=== PATIENT | female | born 1975 | race Caucasian/White ===

== ENCOUNTER → 2018-11-26 14:30 | Outpatient (POV) | payer BC, SELFPAY | PROVIDERS: Visit Provider Dermatology | DX: Z00.00 Encounter for general adult medical examination without abnormal findings (principal) ==

== ENCOUNTER → 2019-01-28 08:07 | Outpatient (POV) | payer BC, SELFPAY | PROVIDERS: Visit Provider Dermatology | DX: Z00.00 Encounter for general adult medical examination without abnormal findings (principal) ==

== ENCOUNTER → 2019-11-11 10:00 | Outpatient (POV) | payer BC, SELFPAY | PROVIDERS: Visit Provider Dermatology | DX: Z00.00 Encounter for general adult medical examination without abnormal findings (principal) ==

== ENCOUNTER → 2021-01-04 11:00 | Outpatient (POV) | payer BC, SELFPAY | PROVIDERS: Visit Provider Dermatology | DX: Z00.00 Encounter for general adult medical examination without abnormal findings (principal) ==

== ENCOUNTER → 2021-05-24 14:40 | Outpatient (POV) | payer BC, SELFPAY | PROVIDERS: Visit Provider Dermatology | DX: Z00.00 Encounter for general adult medical examination without abnormal findings (principal) ==

== ENCOUNTER → 2021-10-25 09:25 | Outpatient (POV) | payer BC, SELFPAY ==
[2021-10-25 10:30] LABS: Basophils # 0.1 K/mm3 (0-0.2); Basophils % 0.6 % (0.1-2.0); Eosinophils # 0.2 K/mm3 (0.0-0.4); Eosinophils % 1.5 % (0.1-12.0); Hematocrit 42.5 % (37.0-47.0); Hemoglobin 14.3 g/dL (12.2-16.2); Lymphocytes % 19.3 % (10-50); Mean Corpuscular HGB Conc 33.6 g/dL (31.8-35.4); Mean Corpuscular Hemoglobin 31.4 pg (27.0-31.2); Mean Corpuscular Volume 93.5 fl (81-99); Mean Platelet Volume 7.7 fl (7.4-10.4); Monocytes # 0.3 K/mm3 (0.1-1.0); Monocytes % 3.3 % (1.7-9.3); Neutrophils # 7.7 K/mm3 (1.8-7.8); Neutrophils % 75.3 % (37.0-80.0); Platelet Count 346 K/mm3 (142-424); Red Blood Count 4.54 M/mm3 (4.20-5.40); Red Cell Distribution Width 12.2 % (11.5-17.5); White Blood Count 10.3 K/mm3 (4.8-10.8)
[2021-10-25 11:03] LABS: Chloride 105 mmol/L (98-107); Potassium 4.6 mmoL/L (3.5-5.1); Sodium 141 mmol/L (136-145)
[2021-10-25 11:06] LABS: Alanine Aminotransferase 18 U/L (12-78); Albumin Level 4.5 g/dl (3.5-5.0); Albumin/Globulin Ratio 1.6 (1.1-1.8); Alkaline Phosphatase 63 U/L (38-126); Anion Gap 14.6 mEq/L (5-15); Aspartate Amino Transferase 29 U/L (14-36); Bilirubin,Total 0.7 mg/dl (0.2-1.3); Blood Urea Nitrogen 15 mg/dl (7-17); Calcium 9.3 mg/dl (8.4-10.2); Carbon Dioxide 26 mmol/L (22.0-30.0); Estimated Glomerular Filt Rate 78 ml/min (>60); GFR (African American) 94 ML/MIN (>60); Globulin 2.8 g/dL (1.3-3.2); Glucose 78 mg/dl (74-100); Total Protein,Serum 7.3 g/dl (6.3-8.2)
[2021-10-28 03:36] LABS: QuantiFERON-TB Gold Plus Negative (Negative)
== END ==
PROVIDERS: Visit Provider Dermatology
DX: L40.0 Psoriasis vulgaris (principal); Z79.899 Other long term (current) drug therapy
CPT/HCPCS: 36415; 80053; 85025; 86480

== ENCOUNTER → 2022-01-31 09:08 | Outpatient (POV) | payer BC, SELFPAY | PROVIDERS: Visit Provider Dermatology | DX: Z00.00 Encounter for general adult medical examination without abnormal findings (principal) ==

== ENCOUNTER → 2022-11-07 08:05 | Outpatient (POV) | payer BC, SELFPAY | PROVIDERS: Visit Provider Dermatology | DX: Z00.00 Encounter for general adult medical examination without abnormal findings (principal) ==

== ENCOUNTER → 2022-11-07 08:42 | Outpatient (CLI) | payer BC, SELFPAY ==
[2022-11-07 09:11] LABS: Basophils # 0.1 K/mm3 (0-0.2); Eosinophils # 0.1 K/mm3 (0.0-0.4); Eosinophils % 0.9 % (0.1-12.0); Hematocrit 43.1 % (37.0-47.0); Lymphocytes # 1.6 K/mm3 (0.7-4.5); Lymphocytes % 16.5 % (10-50); Mean Corpuscular HGB Conc 32.5 g/dL (31.8-35.4); Mean Corpuscular Hemoglobin 30.7 pg (27.0-31.2); Mean Corpuscular Volume 94.5 fl (81-99); Mean Platelet Volume 8.2 fl (7.4-10.4); Monocytes # 0.3 K/mm3 (0.1-1.0); Monocytes % 3.6 % (1.7-9.3); Neutrophils # 7.5 K/mm3 (1.8-7.8); Platelet Count 322 K/mm3 (142-424); Red Blood Count 4.56 M/mm3 (4.20-5.40); Red Cell Distribution Width 12.9 % (11.5-17.5); White Blood Count 9.4 K/mm3 (4.8-10.8)
[2022-11-07 09:39] LABS: Chloride 109 mmol/L (98-107)
[2022-11-07 09:40] LABS: Potassium 4.3 mmoL/L (3.5-5.1); Sodium 141 mmol/L (136-145)
[2022-11-07 09:42] LABS: Alanine Aminotransferase 19 U/L (12-78); Alkaline Phosphatase 72 U/L (38-126); Anion Gap 15.3 mEq/L (5-15); Aspartate Amino Transferase 36 U/L (14-36); Bilirubin,Total 0.8 mg/dl (0.2-1.3); Blood Urea Nitrogen 22 mg/dl (7-17); Carbon Dioxide 21 mmol/L (22.0-30.0); Estimated Glomerular Filt Rate 48 ml/min (>60); GFR (African American) 59 ML/MIN (>60)
[2022-11-07 09:43] LABS: Albumin Level 4.6 g/dl (3.5-5.0); Albumin/Globulin Ratio 1.6 (1.1-1.8); Globulin 2.9 g/dL (1.3-3.2); Glucose 93 mg/dl (74-100); Total Protein,Serum 7.5 g/dl (6.3-8.2)
[2022-11-10 14:18] LABS: QuantiFERON-TB Gold Plus Negative (Negative)
[2022-11-15 23:01] LABS: Hep A Ab, IgM NEGATIVE; Hepatitis B Core Antibody IgM NEGATIVE; Hepatitis B Surface Antigen NEGATIVE; Hepatitis C Antibody <0.1
== END ==
PROVIDERS: PCP Family Medicine; Visit Provider Dermatology
DX: L40.8 Other psoriasis (principal)
CPT/HCPCS: 36415; 80053; 80074; 85025; 86480

== ENCOUNTER 2024-09-16 23:31 | Emergency (ER) | payer BC, SELFPAY ==
[2024-09-16 23:32] VITALS: BP 139/90; PULSE 74; RESP 18; TEMP 36.8; O2SAT 98; BMI 24.2
--- NOTE | 2024-09-16 23:44 | ED_ITS ---
Discharge Plan Disposition Patient Disposition: Home, Self-Care Prescriptions Prescriptions: New sulfamethoxazole-trimethoprim 800-160 mg tablet 1 tab PO BID 5 Days Qty: 10 0RF prednisone 50 mg tablet 50 mg PO DAILY 5 Days Qty: 5 0RF No Action omega-3 fatty acids [Fish Oil Concentrate] 1,000 mg capsule 1,000 mg PO ONCE multivitamin with iron tablet 1 tab PO ONCE Saxenda 3 mg/0.5 mL (18 mg/3 mL) pen injector SQ Patient Comments: INJECT 3MG UNDER THE SKIN INTO THE APPROPRIATE AREA DAILY DIRECTED. TITRATE UP DIRECTED STARTING AT 0.6MG DAILY methylprednisolone [Medrol (Josesito)] 4 mg tablets,dose pack 4 mg PO DAILY Qty: 21 0RF azithromycin [Zithromax Z-Josesito] 250 mg tablet See Rx Instructions PO .COMPLEX Qty: 6 0RF Rx Instructions: For 250 mg dose pack: take 500 mg today (day 1), then 250 mg for 4 days (days 2-5) PO fluticasone propionate [Flonase Allergy Relief] 50 mcg/actuation spray,suspension 2 spray NS DAILY Qty: 16 3RF Rx Instructions: administer into each nostril Referrals Follow up/Referrals: Chaya Jarrell MD [Primary Care Provider] - See instructions Activity Restrictions/Add. Instructions Additional Instructions/Restrictions: Recommend taking the Bactrim and discontinuing the Macrobid as this could be a source of reaction. Recommend taking loratadine 10 mg once or twice a day for the next few days. If your rash worsens or persists, recommend starting the prednisone prescription that I also sent in. Please follow-up with your primary care provider. Please return to the emergency department if you develop any new or worsening symptoms or become concerned for your health. Clinical Impressions Clinical Impression: Urticaria Print Language Print Language: Bengali Discharge ED Provider: Rolly Trotter General Adult HPI General Chief complaint: Allergic Reaction Stated complaint: allergic reation, itching, all over body Time Seen by Provider: 09/16/24 23:44 History of Present Illness HPI narrative: 49-year-old female without significant past medical history presents for development of sudden rash. She reports that it was red, blotchy, itchy, started in her groin and was present under her breasts and in her armpits as we ll. She reports it started all of a sudden. She had a episode of diarrhea at the time that started as well. She denies any shortness of breath, swelling of the lips or tongue etc. She reports that she is currently being treated for urinary tract infection and is on Macrobid. She reports that she has been on Macrobid many times before and has never had any issues. She denies any known allergens or recent exposures to new things. She reports that the rash is getting better, did not take anything prior to arrival. Related Data Home Medications ?Medication ?Instructions ?Recorded ?Confirmed multivitamin with iron 1 tab PO ONCE 06/05/18 06/21/22 omega-3 fatty acids 1,000 mg 1,000 mg PO ONCE 06/05/18 06/21/22 capsule (Fish Oil Concentrate) liraglutide (weight loss) 3 mg/0.5 ml SQ 06/21/22 06/21/22 mL (18 mg/3 mL) subcut pen injector (Saxenda) Previous Rx's ?Medication ?Instructions ?Recorded azithromycin 250 mg tablet See Rx Instructions PO .COMPLEX #6 06/21/22 (Zithromax Z-Josesito) tabs fluticasone propionate 50 2 spray intranasal DAILY #16 grams 06/21/22 mcg/actuation nasal spray,suspension (Flonase Allergy Relief) methylprednisolone 4 mg tablets in 4 mg PO DAILY #21 tabs 06/21/22 a dose pack (Medrol (Josesito)) prednisone 50 mg tablet 50 mg PO DAILY 5 days #5 tabs 09/17/24 sulfamethoxazole 800 1 tab PO BID 5 days #10 tabs 09/17/24 mg-trimethoprim 160 mg tablet Allergies Allergy/AdvReac Type Severity Reaction Status Date / Time Penicillins Allergy Verified 06/21/22 12:51 [facility] Disclaimer: The information contained in this section may have been updated after the patient was seen, as this information can be updated by other users. Social History Smoking Status: Current every day smoker alcohol intake: current alcohol intake frequency: holidays/special occasions only current occupational status: employed Travel in the last 8 weeks: None Other Medical History Have you received the Flu Vaccine for this season: No ROS Obtained: Yes All systems reviewed & no additional complaints except as documented Physical Exam General General appearance: alert and in no apparent distress Head Head exam: atraumatic and normocephalic Eye Eye exam: Present normal appearance, PERRL and EOMI ENT ENT exam: Present normal oropharynx and normal external ear exam Neck Neck exam: Present normal inspection and full ROM Chest Chest inspection: Present normal inspection and symmetric chest wall rise; Absent tenderness Respiratory Respiratory exam: Present normal lung sounds bilaterally; Absent respiratory distress Cardiovascular Cardiovascular exam: Present regular rate and normal rhythm Abdominal Exam Abdominal exam: Present soft; Absent distention, tenderness or guarding Extremities Exam Extremities exam: Present normal inspection; Absent edema or joint swelling Back Exam Back exam: Present normal inspection; Absent tenderness Neurological Exam Neurological exam: Present alert and oriented X3; Absent motor sensory deficit Psychiatric Psychiatric exam: Present normal affect and normal mood Skin Skin exam: Present warm, dry, normal color and rash (Urticarial rash in the intertriginous area) Lymphatic Lymphatic Findings: no adenopathy Medical Decision Making Medical Records Medical records reviewed: Yes I reviewed the patient's medical records. Screening: Per USPSTF and CDC recommendations, given the prevalence of disease in our region, it is our hospital?s policy to screen for HIV and viral Hepatitis for all patients aged 18 and over and those with ongoing risk factors. Dhiraj Inquiry Pt receiving controlled substance: No Dhiraj was queried for this patient: No Vital Signs: 09/16/24 23:32 09/17/24 00:00 09/17/24 00:30 Temperature 98.2 F Temperature Source Oral Pulse Rate 70 71 Pulse Rate [Right] 74 Respiratory Rate 18 Blood Pressure 139/90 131/86 Blood Pressure [Right Arm] 139/90 Blood Pressure Mean [Right Arm] 106 Blood Pressure Source [Right Arm] Automatic Cuff 02 Sat by Pulse Oximetry 98 98 98 Oxygen Delivery Method Room Air 09/17/24 00:57 Temperature 97.8 F Temperature Source Pulse Rate 73 Pulse Rate [Right] Respiratory Rate 20 Blood Pressure 131/86 Blood Pressure [Right Arm] Blood Pressure Mean [Right Arm] Blood Pressure Source [Right Arm] 02 Sat by Pulse Oximetry Oxygen Delivery Method Room Air Lab Data Lab results reviewed: Yes I reviewed the patient's lab results. Orders (Tests/Meds): ED MEDICATIONS Discontinued Medications Generic Name Dose Route Start Last Admin Trade Name Freq PRN Reason Stop Dose Admin Dexamethasone 10 mg 09/16/24 23:53 09/17/24 00:21 Dexamethasone 4mg Tablet PO 09/16/24 23:54 10 mg ONCE ONE Administration Loratadine 10 mg 09/16/24 23:54 09/17/24 00:27 Loratadine 10mg Tablet PO 09/16/24 23:55 10 mg ONCE ONE Administration Medical Decision Narrative: 49-year-old female, currently being treated with Macrobid for urinary tract infection presents with sudden onset urticarial rash in the groin and armpits. It was associated with 1 episode of diarrhea. It started about an hour ago, began improving on the way to the ER, continues to be improving currently.. History was obtained via interactive discussion with patient, family. On arrival, patient is [afebrile, hemodynamically stable, satting appropriately, alert, oriented x4, GCS 15], moving all extremities spontaneously. Full physical exam performed and significant for urticarial rash. Differential includes but is not limited to idiopathic urticaria, anaphylaxis, angioedema, medication allergy,. Patient was given loratadine and dexamethasone for symptomatic management and correction of underlying abnormalities. Although the presence of the rash and diarrhea at the time of onset is concerning for anaphylaxis, patient currently does not meet criteria and symptoms are improving without intervention. We will monitor patient to ensure symptomatic improvement prior to discharge. On reassessment patient has continued improvement. Given patient history, exam and workup, patient's presentation most likely represents allergic reaction versus acute idiopathic urticaria. Patient may be having a reaction to the Macrobid, though she has tolerated it many times in the past. Given this, I switched her prescription to Bactrim for coverage of a urinary tract infection. I encouraged her to take loratadine over the next few days. I also wrote a prescription for prednisone to take if her symptoms worsen or do not improve. She was given strict return precautions for signs and symptoms of anaphylaxis. Procedures Risk/Benefits of Procedure(s) Were Explained: Yes Critical Care Critical Care Time Critical Care Time: No
[2024-09-17] VITALS: BP 139/90; PULSE 70; O2SAT 98
[2024-09-17] MEDS: DEXAMETHASONE 4MG TABLET 10 MG PO (00:21)
[2024-09-17] MEDS: LORATADINE 10MG TABLET 10 MG PO (00:27)
[2024-09-17 00:30] VITALS: BP 131/86; PULSE 71; O2SAT 98
[2024-09-17 00:57] VITALS: BP 131/86; PULSE 73; RESP 20; TEMP 36.6; O2SAT 97
== END 2024-09-17 00:58 | disposition home or self-care (01) ==
PROVIDERS: Emergency Provider Emergency Medicine; PCP Family Medicine
DX: L50.9 Urticaria, unspecified (principal)
CPT/HCPCS: 99283; J8540

== ENCOUNTER 2024-12-01 08:18 | Outpatient (CLI) | payer BC, SELFPAY ==
--- NOTE | 2024-12-01 08:21 | US_ITS ---
FINAL REPORT CLINICAL HISTORY: RUQ PAIN COMPARISON: None FINDINGS: Sonographic images of the right upper quadrant were obtained. The pancreas is partially obscured.The liver has an unremarkable appearance.The gallbladder appears normal without evidence of gallstones. There is a minimal amount of sludge. There is no evidence of biliary ductal dilatation.The common duct measures 3 mm. A cystic area in the upper pole of the right kidney measures 1.1 cm. IMPRESSION: Minimal gallbladder sludge. Right renal cystic area. Reviewed, Interpreted and Dictated by Ari Montoya MD Transcribed by Alma Duggan Authenticated and [facility]
== END 2024-12-01 23:59 | disposition home or self-care (01) ==
LOC: RAD 08:19
PROVIDERS: PCP Nurse Practitioner; Visit Provider Nurse Practitioner
DX: R10.11 Right upper quadrant pain (principal)
CPT/HCPCS: 76705

== ENCOUNTER 2024-12-12 06:55 | Outpatient (CLI) | payer BC, SELFPAY ==
--- NOTE | 2024-12-12 07:01 | NM_ITS ---
FINAL REPORT CLINICAL HISTORY: ABD PAIN COMPARISON: None FINDINGS: Sequential anterior projection images of the abdomen were obtained after the intravenous injection of 7.96 mCi technetium 99m Choletec. There is normal uptake of radiotracer by the liver. The bile ducts are visualized by 5 minutes. Gallbladder activity is seen by 5 minutes. Bowel activity is noted by 5 minutes. After 1 hour, 1.3 ?g of CCK was injected intravenously for calculation of gallbladder ejection fraction. The gallbladder ejection fraction is 61%, which is within normal limits. IMPRESSION: No evidence of cystic duct or bile duct obstruction. Normal gallbladder ejection fraction of 61%. Reviewed, Interpreted and Dictated by Anil Lin MD Transcribed by Alena Pratt Authenticated and [facility]
[2024-12-12] MEDS: SODIUM CHLORIDE 0.9% 10ML SYR (RAD ONLY) 10 ML IV (07:10)
[2024-12-12] MEDS: SINCALIDE 1.3 MCG in 0.9 % SODIUM CHLORIDE 50 ML 100 MCG IV (08:37)
[2024-12-12] MEDS: ISOTOPE CHOLETECH;1 DOSE (UP TO 15 MCI) IV (08:37)
== END 2024-12-12 23:59 | disposition home or self-care (01) ==
PROVIDERS: PCP Nurse Practitioner; Visit Provider Family Medicine
DX: R10.9 Unspecified abdominal pain (principal)
CPT/HCPCS: 78227; A9537; J2805

== ENCOUNTER 2025-08-05 12:56 | Outpatient (CLI) | payer BC, SELFPAY ==
--- OUTSIDE RECORDS SUMMARY | 2025-06-23 08:30 | XMS_ITS | Encounter Summary ---
Author Organization [facility] Address [address] [place] [address] Care Team Providers Care Pathologist Assistant Name Role Phone Jay Jay Jarrell MD Primary Care Provider [phone] Reason for Visit * Reason Comments Follow-up Encounter Details Date Type Department Care Team (Late st Contact Info) Description 06/23/2025 8:30 AM EDT Office Visit [facility] [address] [place] [address] Max Barry, CANDY DEPARTMENT MANAGER [address] [place] [address] Overweight (Primary Dx); Hypoglycemia; Muscle soreness; Counseling, unspecified Social History Tobacco Use Types Packs/Day Years Used Date Smoking Tobacco: Former Passive Smoke Exposure: Never Smokeless Tobacco: Never Tobacco Cessation:Counseling Given: Not Answered Alcohol Use Standard Drinks/Week Comments Yes 8 (1 standard drink = 0.6 oz pur e alcohol) Once a month Comments No Sex and Gender Information Value Date Recorded Sex Assigned at Female 12/29/2024 6:09 AM EST Legal Sex Female 9:58 AM EDT Gender Identity Not on file Sexual Orientation Not on file documented as of this encounter Last Filed Vital Signs Vital Sign Reading Time Taken Comments Blood Pressure 132/84 06/23/2025 8:34 AM EDT Pulse 68 06/23/2025 8:34 AM EDT Temperature - - Respiratory Rate - - Oxygen Saturation - - Inhaled Oxygen Concentration - - Weight 70.7 kg (155 lb 12.8 oz) 06/23/2025 8:34 AM EDT Height 165.1 cm (5' 5 ) 06/23/2025 8:34 AM EDT Body Mass Index 25.93 06/23/2025 8:34 AM EDT documented in this encounter Patient Instructions * Attachments The following attachments cannot be sent through Care Everywhere. * Tirzepatide Injection (Weight Management) (Hong Konger) documented in this encounter Progress Notes * Max Barry APRN - 06/23/2025 9:16 AM EDTAssociated Problem(s): Counseling, unspecified We discussed that the topic of high cortisol is a trend in online platforms right now and there is a lot of misinformation. While chronic stress, sleep deprivation, unhealthy diet, lack of exercise can increase cortisol, testing for this is difficult and there is no well researched supplement or diet (other than a healthy diet) to treat it. Discussed risk factors and symptoms of Cushings disease which is a rare medical condition. * Max Barry APRN - 06/23/2025 9:09 AM EDTAssociated Problem(s): Hypoglycemia A1c 4.4 in Dec on wegovy 2.4mg. A1c 4.5 in March on wegovy 1.7mg, was decreased to 1mg. Asymptomatic.Repeat lab today. Consider tirzepatide if this continues to be a side effect, has regained 9lb since December, appetite is not as well controlled. * Max Barry APRN - 06/23/2025 9:08 AM EDTAssociated Problem(s): Overweight Patient's (Body mass index is 25.93 kg/m??.) indicates that they are overweight with health conditions that include hypertension and dyslipidemias . Weight is worsening. BMI is above average; BMI management plan is completed. We discussed low calorie, low carb based diet program, portion control, increasing exercise, pharmacologic options including wegovy, and an noman-based approach such as AntCor Pal or Lose It. I have instructed the patient to continue with pursuit of medical weight loss as a part of this program. Patient does meet criteria for use of anorectics at this time as BMI >25 with , hyperlipidemia, hypertension, and is not at treatment goal. The current plan for this month includes: - Continue current exercise efforts - Continue to prioritize protein, fiber, and hydration. - Add BCAAs for muscle recovery- reviewed different brands and what to look for, when to use them. OK to add magnesium supplement also. - Hunger has increased and weight has increased since decreasing wegovy due to low A1c. Repeat today. Asymptomatic. Consider changing to zepbound if A1c remains low on wegovy and she is unable to reach therapeutic dose. - She is 4lb away from a normal weight, patient's goal is 135lb. Cholesterol is now normal, blood pressure has improved other than today's visit- she is a little stressed this morning. Addendum 06/24/25 Patient's A1c remains at 4.5 despite decreasing wegovy to 1mg. Will change to tirzepatide and see if she tolerates it better. Called patient to discuss plan, she is agreeable. I am sending her the link for the website that has instructions for how to use the pen. * Max Barry APRN - 06/23/2025 8:30 AM EDTAddended by: MAX BARRY on: 06/24/2025 08:20 AM Modules accepted: Orders * Max Barry APRN - 06/23/2025 8:30 AM EDT Images from the original note were not included. [facility] [address] [place] [address] Office Note Date: 06/23/2025 Patient Name: Shanna Adamson : 1975 Subjective Subjective Chief Complaint Obesity Management follow-up Shanna Adamson presents to [facility] for obesity management. Patient is unsatisfied with weight loss progress. Ran out of wegovy 1mg, her last dose was 2 weeks ago. Appetite is poorly controlled. Reports no side effects of prescribed medications today. She purchased a magnesium supplement because her muscles are sore from weight lifting exercises. Hasn't started it yet, wanted to make sure it was safe first. She would also like to discuss cortisol and if it's something she needs to be concerned about. The patient is taking multivitamin and is not taking fish oil. The patient is not using a food journal consistently. Typically packs her lunch for work- tuna. 24 hour recall: Breakfast: protein shake (premier protein) Lunch: bbq chicken Dinner: baked fish, fries Snack: none Water Intake: 64 oz Other beverages: none Alcohol: occasionally The patient is exercising by running once weekly, walking 3 times per week and doing resistance training 4 times per week with a FITT score of: Frequency Intensity Time Strength Training [] 0, none [] 0 [] 0 [] 0 [] 1 (1-2x/week) [x] 1 (light) [] 1 (<10 min) [] 1 (1x/week) [x] 2 (3-5x/week) [] 2 (moderate) [] 2 (10-20 min) [] 2 (2x/week) [] 3 (daily) [] 3 (moderately hard) [] 4 (very hard) [] 3 (20-30 min) [x] 4 (>30 min) [x] 3 (3-4x/week) Review of Systems Constitutional: Negative for appetite change and fatigue. Eyes: Negative for visual disturbance. Cardiovascular: Negative for chest pain and palpitations. Gastrointestinal: Negative for constipation and indigestion. Endocrine: Negative for polydipsia, polyphagia and polyuria. Neurological: Negative for light-headedness. Current Outpatient Medications: ??? multivitamin with minerals (Multivitamin Adults) tablet tablet, Take 1 tablet by mouth Daily., Disp: 30 tablet, Rfl: 2 ??? Cranberry 50 MG chewable tablet, Chew. (Patient not taking: Reported on 06/23/2025), Disp: , Rfl: ??? Ixekizumab (Taltz) 80 MG/ML solution auto-injector, Inject 80 mg as directed Every 30 (Thirty) Days. (Patient not taking: Reported on 06/23/2025), Disp: , Rfl: ??? [place]-3 Fatty Acids ([place] 3 500) 500 MG capsule, Take 4 capsules by mouth Daily. (Patient not taking: Reported on 06/23/2025), Disp: , Rfl: ??? Tirzepatide-Weight Management (Zepbound) 5 MG/0.5ML solution auto-injector, Inject 0.5 mL underthe skin into the appropriate area as directed 1 (One) Time Per Week., Disp: 2 mL, Rfl: 0 Objective Start weight: 185 pounds. Total weight loss: -29.2 pounds/-15.78% Change in weight since last visit: +8.5lb Body mass index is 25.93 kg/m??. Body composition analysis completed and showed: Body Fat %: 35.8 Measurements (in inches) Waist Circumference: 38 Vital Signs: BP 132/84 (BP Location: Left arm, Patient Position: Sitting) Pulse 68 Ht 165.1 cm (65 ) Wt 70.7 kg (155 lb 12.8 oz) BMI 25.93 kg/m?? Patient's last menstrual period was 06/08/2025. Physical Exam General appears stated age and normal appearance HEENT PERRLA, EOM intact, and conjunctivae normal Chest/lungs Normal rate, Regular rhythm, and Breathing is unlabored Extremities without edema Neuro Good historian and No focal deficit Skin Warm, dry, intact Psych normal behavior, normal thought content, and normal concentration Result Review : Assessment / Plan Diagnoses and all orders for this visit: 1. Overweight (Primary) Assessment & Plan: Patient's (Body mass index is 25.93 kg/m??.) indicates that they are overweight with health conditions that include hypertension and dyslipidemias . Weight is worsening. BMI is above average; BMI management plan is completed. We discussed low calorie, low carb based diet program, portion control, increasing exercise, pharmacologic options including wegovy, and an noman-based approach such as AntCor Pal or Lose It. I have instructed the patient to continue with pursuit of medical weight loss as a part of this program. Patient does meet criteria for use of anorectics at this time as BMI >25 with , hyperlipidemia, hypertension, and is not at treatment goal. The current plan for this month includes: - Continue current exercise efforts - Continue to prioritize protein, fiber, and hydration. - Add BCAAs for muscle recovery- reviewed different brands and what to look for, when to use them. OK to add magnesium supplement also. - Hunger has increased and weight has increased since decreasing wegovy due to low A1c. Repeat today. Asymptomatic. Consider changing to zepbound if A1c remains low on wegovy and she is unable to reach therapeutic dose. - She is 4lb away from a normal weight, patient's goal is 135lb. Cholesterol is now normal, blood pressure has improved other than today's visit- she is a little stressed this morning. Addendum 06/24/25 Patient's A1c remains at 4.5 despite decreasing wegovy to 1mg. Will change to tirzepatide and see if she tolerates it better. Called patient to discuss plan, she is agreeable. I am sending her the link for the website that has instructions for how to use the pen. Orders: - Discontinue: Wegovy 1 MG/0.5ML solution auto-injector; Inject 0.5 mL under the skin into the appropriate area as directed 1 (One) Time Per Week. Dispense: 2 mL; Refill: 0 - Hemoglobin A1c - Basic Metabolic Panel - Tirzepatide-Weight Management (Zepbound) 5 MG/0.5ML solution auto-injector; Inject 0.5 mL under the skin into the appropriate area as directed 1 (One) Time Per Week. Dispense: 2 mL; Refill: 0 2. Hypoglycemia Assessment & Plan: A1c 4.4 in Dec on wegovy 2.4mg. A1c 4.5 in March on wegovy 1.7mg, was decreased to 1mg. Asymptomatic.Repeat lab today. Consider tirzepatide if this continues to be a side effect, has regained 9lb since December, appetite is not as well controlled. Orders: - Hemoglobin A1c - Basic Metabolic Panel 3. Muscle soreness - Basic Metabolic Panel 4. Counseling, unspecified Assessment & Plan: We discussed that the topic of high cortisol is a trend in online platforms right now and there is a lot of misinformation. While chronic stress, sleep deprivation, unhealthy diet, lack of exercise can increase cortisol, testing for this is difficult and there is no well researched supplement or diet (other than a healthy diet) to treat it. Discussed risk factors and symptoms of Cushings disease which is a rare medical condition. ICD-10-CM ICD-9-CM 1. Overweight E66.3 278.02 2. Hypoglycemia E16.2 251.2 3. Muscle soreness M79.10 729.1 4. Counseling, unspecified Z71.9 V65.40 Follow Up Return in about 1 month (around 07/24/2025) for Next scheduled follow up, Labs this visit. Patient was given instructions and counseling regarding her condition or for health maintenance advice. Please see specific information pulled into the AVS if appropriate. Max Barry APRN 06/23/2025 * Cecilia Asif MA - 06/23/2025 8:30 AM EDT Sent to appeals. AP documented in this encounter Plan of Treatment Upcoming Encounters Date Type Department Care Team (Late st Contact Info) Description 08/31/2025 8:00 AM EDT Office Visit [facility] [address] [place] [address] Ida Thomas APRN [address] [facility] [address] [place] [address] documented as of this encounter Procedures Procedure Name Priority Date/Time Associated Diagnosis Comments HEMOGLOBIN A1C Routine 06/23/2025 9:05 AM EDT Overweight Hypoglycemia BASIC METABOLIC PANEL Routine 06/23/2025 9:05 AM EDT Overweight Hypoglycemia Muscle soreness documented in this encounter Results * Basic Metabolic Panel (06/23/2025 9:05 AM EDT) [facility] Glucose 70 65 - 99 mg/dL [facility] BUN 14.0 6.0 - 20.0 mg/dL [facility] Creatinine 0.95 0.57 - 1.00 mg/dL [facility] EGFR Result 73.6 >60.0 mL/min/1.7 3 [facility] Comment: GFR Categories in Chronic Kidney Disease (CKD) GFR Category GFR (mL/min/1.73) Interpretation G1 90 or greater Normal or high (1) G2 60-89 Mild decrease (1) G3a 45-59 Mild to moderate decrease G3b 30-44 Moderate to severe decrease G4 15-29 Severe decrease G5 14 or less Kidney failure (1)In the absence of evidence of kidney disease, neither GFR category G1 or G2 fulfill the criteria for CKD. eGFR calculation 2020 CKD-EPI creatinine equation, which does not include race as a factor BUN/Creatinine Ratio 14.7 7.0 - 25.0 [facility] Sodium 141 136 - 145 mmol/L [facility] Potassium 4.7 3.5 - 5.2 mmol/L [facility] Chloride 105 98 - 107 mmol/L [facility] Total CO2 25.3 22.0 - 29.0 mmol/L [facility] Calcium 9.1 8.6 - 10.5 mg/dL [facility] Blood 06/23/2025 9:05 AM EDT 06/23/2025 Narrative [facility] ([facility]) - 06/23/2025 8:09 PM EDT Performed at: [address] [place] [address] [address] [place], [place] [id number] Stock Preparation Supervisor: Jose Mejia MD, Phone: [phone] Patient Fasting: Y Max Barry CANDY DEPARTMENT MANAGER LAB BLOOD ORDERABLES Final Result Performing Organization Address City/[facility]/ZIP Co de Phone Number [facility] ([facility]) [address] [place] [address], [place] [phone] [facility] [address] [place] [address], [place] [phone] * (ABNORMAL) Hemoglobin A1c (06/23/2025 9:05 AM EDT) Hemoglobin A1C 4.50(L) 4.80 - 5.60 % [facility] Comment: Hemoglobin A1C Ranges: Increased Risk for Diabetes 5.7% to 6.4% Diabetes >= 6.5% Diabetic Goal < 7.0% Blood 06/23/2025 9:05 AM EDT 06/23/2025 Narrative [facility] ([facility]) - 06/23/2025 8:09 PM EDT Performed at: 01 - [facility] [address] [place], [place] [id number] Stock Preparation Supervisor: Jose Mejia MD, Phone: [phone] Patient Fasting: Y us Max Barry CANDY DEPARTMENT MANAGER LAB BLOOD ORDERABLES Final Result Performing Organization Address City/[facility] Co de Phone Number [facility] (AMBULATORY) [address] [place] [address], [place] [phone] [facility] [address] [place] [address], [place] [phone] documented in this encounter Visit Diagnoses Diagnosis Overweight- Primary Hypoglycemia Hypoglycemia, unspecified Muscle soreness Unspecified myalgia and myositis Counseling, unspecified documented in this encounter Care Teams Pathologist Assistant Relationship Specialty Start Date End Date Jay Jay Jarrell MD [address] [place] [address] PCP - General Family Medicine 09/06/16 documented as of this encounter
--- OUTSIDE RECORDS SUMMARY | 2025-07-22 08:00 | XMS_ITS | Encounter Summary ---
Author Organization [facility] Address [address] [place] [address] Care Team Providers Care Ornament Stapler Name Role Phone Jay Jay Jarrell MD Primary Care Provider [phone] Reason for Visit * Reason Comments Follow-up Encounter Details Date Type Department Care Team (Late st Contact Info) Description 07/22/2025 8:00 AM EDT Office Visit [facility] [address] [place] [address] Arianna Barry, RESOURCE MANAGER [address] [place], [place] [id number] Overweight (Primary Dx); Nutritional counseling; Primary hypertension Social History Tobacco Use Types Packs/Day Years [...] Sign Reading Time Taken Comments Blood Pressure 124/78 07/22/2025 8:16 AM EDT Pulse 65 07/22/2025 8:16 AM EDT Temperature - - Respiratory Rate - - Oxygen Saturation - - Inhaled Oxygen Concentration - - Weight 72.8 kg (160 lb 6.4 oz) 07/22/2025 8:16 A M EDT Height 165.1 cm (5' 5 ) 07/22/2025 8:16 AM EDT Body Mass Index 26.69 07/22/2025 8:16 AM EDT documented in this encounter Progress Notes * Arianna Barry, CJ - 07/22/2025 8:00 AM EDT Images from the original note were not included. [facility] [address] [place] [address] Office Note Date: 07/22/2025 Patient Name: Shanna Adamson : 1975 Subjective Subjective Chief Complaint Obesity Management follow-up History of Present Illness The 50 year old female patient presents for weight management. Co-existing hypertension, hyperlipidemia. It has been approximately 6 weeks since her last wegovy injection. There have been problems gettingZepbound filled due to insurance requirements of prior authorization and appeals. Mounjaro was approved then denied on the same day then the pharmacy would not fill it. She monitors her weight daily and has noticed an increase in her appetite and her weight. She recently enrolled in a fitness and nutrition program called [employer], which is not medically supervised. She did this because she felt discouraged about her hunger and her inability to consistently eat healthy without the use of anti- obesity medication. The [employer] program recommends the use of multivitamins, creatine 3 to 5 mg daily, and vitamin D 2000 to 4000 IU. She has been taking a generic gummy multivitamin, as other forms have previously upset her stomach. She is considering the addition of vitamin D to her regimen and is seeking advice on this matter. She has not yet started taking probiotics but is interested in doing so. Her diet includes Yoruba yogurt, which she consumes daily. MEDICATIONS CURRENT MEDS: Multivitamin Oral Daily Creatine 3-5 mg Oral Daily Patient is unsatisfied with weight loss progress. Appetite is poorly controlled. Reports no side effects of prescribed medications today. The patient is taking multivitamin and is not taking fish oil. The patient is using a food journal. She has had some issues with her insurance and because of this she has been off her medication for approximately 5-6 weeks. She is being mindful of her choices but has had increased hunger since being without her medication. She is also using a new program called [employer] for weight loss that she found on Facebook. Calories: 1397 Carbs: 103.4 Fiber: 2.8 Protein: 90 Water Intake: 80-90 oz Other beverages: (1) Frederick energy drink Alcohol: 1-2 weekends per month-rum The patient is exercising walking 2 times per week, running once weekly, resistance training 4 times per week with a FITT score of: Frequency Intensity Time Strength Training [] 0, none [] 0 [] 0 [] 0 [] 1 (1-2x/week) [] 1 (light) [] 1 (<10 min) [] 1 (1x/week) [x] 2 (3-5x/week) [x] 2 (moderate) [] 2 (10-20 min) [] 2 (2x/week) [] 3 (daily) [] 3 (moderately hard) [] 4 (very hard) [] 3 (20-30 min) [x] 4 (>30 min) [x] 3 (3-4x/week) Review of Systems Constitutional: Positive for appetite change. Negative for fatigue. Eyes: Negative for visual disturbance. Cardiovascular: Negative for chest pain and palpitations. Gastrointestinal: Negative for constipation and indigestion. Endocrine: Positive for polyphagia. Negative for polydipsia and polyuria. Neurological: Negative for light-headedness. Current Outpatient Medications: multivitamin with minerals (Multivitamin Adults) tablet tablet, Take 1 tablet by mouth Daily., Disp: 30 tablet, Rfl: 2 Tirzepatide (Mounjaro) 2.5 MG/0.5ML solution auto-injector, Inject 2.5 mg under the skin into the appropriate area as directed 1 (One) Time Per Week., Disp: 2 mL, Rfl: 0 Objective Start weight: 185 pounds. Total weight loss: -24.6 pounds/-13.29% Change in weight since last visit: +4.4lb Baseline BMI 30.8 Body mass index is 26.69 kg/m??. Body composition analysis completed and showed: Body Fat %: 37.4 Measurements (in inches) Waist Circumference: 39.5 Vital Signs: BP 124/78 (BP Location: Left arm, Patient Position: Sitting) Pulse 65 Ht 165.1 cm (65 ) Wt 72.8 kg (160 lb 6.4 oz) BMI 26.69 kg/m?? Patient's last menstrual period was 06/29/2025. Physical Exam General appears stated age and [...] orders for this visit: 1. Overweight (Primary) Overview: Baseline BMI 30.8 in 2018 Orders: - Tirzepatide (Mounjaro) 2.5 MG/0.5ML solution auto-injector; Inject 2.5 mg under the skin into theappropriate area as directed 1 (One) Time Per Week. Dispense: 2 mL; Refill: 0 2. Nutritional counseling 3. Primary hypertension Assessment & Plan 1.OVerweight. Her weight has increased by approximately 4 pounds since the last visit. Despite this, she has achieved a total weight loss of 24 pounds on wegovy, which is 13% of her initial body weight. She is advised to continue with her multivitamin regimen, ensuring that the additional vitamin D intake does not exceed 1000 IU. We can test her vitamin D level with her next lab draw, does not have a history of deficiency but this is a common co-morbidity of obesity. A probiotic specifically designed for weight loss, Bariatric Advantage, is recommended. She is informed that this probiotic may cause diarrhea, in which case she should discontinue its use. The plan is to start Mounjaro at a dose of 2.5 mg, g radually increasing to 5 mg. This will be equivalent to semaglutide 2 mg. She is encouraged to maintain healthy self-talk when weighing herself and to communicate any concerns via message. 2. Vitamin D level check. Her vitamin D level will be assessed during her next lab draw. 3. Primary hypertension. Well controlled. Continue healthy lifestyle choices, has improved with weight reduction. Follow-up A follow-up appointment is scheduled for 1 month from now. I spent 36 minutes caring for Shanna on this date of service. This time includes time spent by rafael the following activities:preparing for the visit, reviewing tests, obtaining and/or reviewing a separately obtained history, performing a medically appropriate examination and/or evaluation , counseling and educating the patient/family/caregiver, ordering medications, tests, or procedures, and documenting information in the medical record Patient was given instructions and counseling regarding her condition or for health maintenance advice. Please see specific information pulled into the AVS if appropriate. Patient or patient business services representative verbalized consent for the use of Ambient Listening during the visit with Arianna Barry APRN for chart documentation. 07/22/2025 08:30 EDT Arianna Barry APRN 07/22/2025 documented in this encounter Plan of Treatment Upcoming Encounters Date Type Department Care Team (Late st Contact Info) Description 08/31/2025 8:00 AM EDT Office Visit [facility] [address] [place] [address] Ida Thomas APRN [address] [place] [address] documented as of this encounter Visit Diagnoses Diagnosis Overweight- Primary Nutritional counseling Primary hypertension Unspecified essential hypertension documented in this encounter Care Teams Ornament Stapler Relationship Specialty Start Date End Date Jay Jay Jarrell MD [address] [place] [address] PCP - General Family Medicine 09/06/16 documented as of this encounter
--- OUTSIDE RECORDS SUMMARY | 2025-08-05 13:03 | XMS_ITS | Encounter Summary ---
[facility] Address [address] [place] [address] Care Team Providers Care Stock Buyer Name Role Phone Jay Jay Jarrell MD Primary Care Provider [phone] Encounter Details Date Type Department Care Team (Latest Contact Info) Description 07/22/2025 Travel Social History Tobacco Use Types Packs/Day Years Used Date Smoking Tobacco: Former Passive Smoke Exposure: Never Smokeless Tobacco: Never Alcohol Use Standard Drinks/Week Comments Yes 8 (1 standard drink = 0.6 oz pur e alcohol) Once a month Comments No Sex and Gender Information Value Date Recorded Sex Assigned at Female 12/29/2024 6:09 AM EST Legal Sex Female 9:58 AM EDT Gender Identity Not on file Sexual Orientation Not on file documented as of this encounter Plan of Treatment Upcoming Encounters Date Type Department Care Team (Late st Contact Info) Description 08/31/2025 8:00 AM EDT Office Visit [facility] [address] [place] [address] Ida Thomas, FUEL CELL SYSTEMS ENGINEER [address] [place] [address] documented as of this encounter Visit Diagnoses Not on filedocumented in this encounter Care Teams Stock Buyer Relationship Specialty Start Date End Date Jay Jay Jarrell MD [address] [place] [address] PCP - General Family Medicine 09/06/16 documented as of this encounter
--- OUTSIDE RECORDS SUMMARY | 2025-08-05 13:03 | XMS_ITS | Encounter Summary ---
[facility] Address [address] [place] [address] Care Team Providers Care Diesel Machinist Name Role Phone Jay Jay Jarrell MD Primary Care Provider [phone] Encounter Details Date Type Department Care Team (Late st Contact Info) Description 06/25/2025 Prior Authorization [facility] [address] [place] [address] Max Barry APRN [address] [place] [address] Social History Tobacco Use Types Packs/Day Years [...] on file documented as of this encounter Progress Notes * Max Barry APRN - 07/01/2025 8:18 AM EDTAddended by: MAX BARRY on: 07/01/2025 08:18 AM Modules accepted: Orders documented in this encounter Miscellaneous Notes * Telephone Encounter - Max Barry APRN - 07/01/2025 8:18 AM EDT Prescription for Mounjaro 5mg sent to [facility]. * Telephone Encounter - Cecilia Asif MA - 07/01/2025 8:09 AM EDT PA for Mounjaro/Zepbound APPROVED 06/30/2025-02/28/2026. * Telephone Encounter - Cecilia Asif MA - 06/30/2025 1:48 PM EDT PA for Mounjaro/Zepbound was denied. I am filing an appeal. * Telephone Encounter - Debbie Ram MA - 06/25/2025 2:13 PM EDTSummary: Zepbound PA Shanna Snow (Neves: [id number]) Zepbound 5MG/0.5ML pen-injectors Form [facility] Electronic PA Form (2017 [facility], [facility]) 07/22/25-(SH)- according to patient Mounjaro is still not going through at the pharmacy. She states she received 2 letters, one stating that Mounjaro was approved and one stating that it was denied. Pharmacy is telling her that it will not go through. 07/24/25-(SH)- Spoke with Moises at [facility] to see what the issue is with the patients prescription. Moises states there is an active PA on file for mounjaro and that a claim was paid on 07/22/25. LM with patient to make sure she received the medication. documented in this encounter Plan of Treatment Upcoming Encounters Date Type Department Care Team (Late st Contact Info) Description 08/31/2025 8:00 AM EDT Office Visit [facility] [address] [place] [id number] Martha Ida, FILTER TIP INSPECTOR [address] [place] [address] documented as of this encounter Visit Diagnoses Diagnosis Overweight- Primary documented in this encounter Care Teams Diesel Machinist Relationship Specialty Start Date End Date Jay Jay Jarrell MD [address] [place] [address] PCP - General Family Medicine 09/06/16 documented as of this encounter
--- OUTSIDE RECORDS SUMMARY | 2025-08-05 13:03 | XMS_ITS | Encounter Summary ---
Author Organization [facility] Address [address] [place] [address] Care Team Providers Care Framing Carpenter Name Role Phone Jay Jay Jarrell MD Primary Care Provider Encounter Details Date Type Department Care Team (Late st Contact Info) Description 06/24/2025 Results Follow-Up [facility] [address] [place] [address] Arianna Barry, [employer] [address] [place], [place] [id number] Social History Tobacco Use Types Packs/Day Years [...] on file documented as of this encounter Miscellaneous Notes * Telephone Encounter - Arianna Barry APRN - 06/24/2025 8:20 AM EDT Called patient to discuss lab results. A1c is still low at 4.5 despite decreasing wegovy to 1mg. Discussed the option to change to tirzepatide, patient is agreeable. Sending her instructions on how to administer the medication. documented in this encounter Plan of Treatment Upcoming Encounters Date Type Department Care Team (Late st Contact Info) Description 08/31/2025 8:00 AM EDT Office Visit [facility] [address] [place] [address] Ida Thomas APRN [address] [place], [place] [id number] documented as of this encounter Visit Diagnoses Not on filedocumented in this encounter Care Teams Framing Carpenter Relationship Specialty Start Date End Date Jay Jay Jarrell MD [address] [place] [address] PCP - General Family Medicine 09/06/16 documented as of this encounter
--- OUTSIDE RECORDS SUMMARY | 2025-08-05 13:03 | XMS_ITS | Encounter Summary ---
[facility] Address [address] [place] [address] Care Team Providers Care Flight Agent Name Role Phone Jay Jay Jarrell MD Primary Care Provider [phone] Reason for Visit * Reason Onset Date Comments Med Refill 10/10/2022 Encounter Details Date Type Department Care Team (Late st Contact Info) Description 10/10/2022 Refill [facility] [address] [place] [address] Ida Thomas, CJ [address] [place], [place] [id number] Overweight (BMI 25.0-29.9) Social History Tobacco Use Types Packs/Day Years Used Date Smoking Tobacco: Former Smokeless Tobacco: Never Alcohol Use Standard Drinks/Week Comments Yes 0 (1 standard drink = 0.6 oz pur [...] Description 08/31/2025 8:00 AM EDT Office Visit [facility] [address] [place] [address] SylviaIda avendaño, THREAD ROLLER [address] [facility] [address] [place] [address] documented as of this encounter Visit Diagnoses Diagnosis Overweight (BMI 25.0-29.9) Overweight documented in this encounter Care Teams Flight Agent Relationship Specialty Start Date End Date Jay Jay Jarrell MD [address] [place] [address] PCP - General Family Medicine 09/06/16 documented as of this encounter
--- OUTSIDE RECORDS SUMMARY | 2025-08-05 13:03 | XMS_ITS | Clinical Summary ---
Author Organization [facility] Address [address] [place] [address] Care Team Providers Care Mailing Section Clerk Name Role Phone Jay Jay Jarrell MD Primary Care Provider [phone] Allergies Active Allergy Reactions Criticality Noted Date Comments Nitrofurantoin Hives Medium 09/29/2024 Penicillins Unknown (See Comments) Low 06/02/2016 Not sure. Allergy since she was young. Medications multivitamin with minerals (Multivitamin Adults) tablet tabletIndicat ions:Overweig ht (BMI 25.0-29.9) Take 1 tablet by mouth Daily. 30 tablet 2 01/24/20 22 Active Tirzepatide (Mounjaro) 2.5 MG/0.5ML solution auto-injector Indications:O verweight Inject 2.5 mg under the skin into the appropriate area as directed 1 (One) Time Per Week. 2 mL 07/22/20 25 Active Ixekizumab (Taltz) 80 MG/ML solution auto-injector Inject 80 mg as directed Every 30 (Thirty) Days. 11/09/19 22 025 Discontinued(*T herapy completed) Revillo-3 Fatty Acids (Revillo 3 500) 500 MG capsuleIndica tions:Overwei ght (BMI 25.0-29.9) Take 4 capsules by mouth Daily. 01/24/20 22 025 Discontinued(*T herapy completed) Cranberry 50 MG chewable tablet Chew. 025 Discontinued(*T herapy completed) Tirzepatide 5 MG/0.5ML solution auto-injector Indications:O verweight Inject 5 mg under the skin into the appropriate area as directed 1 (One) Time Per Week. MOUNJARO 2 mL 07/01/20 25 025 Discontinued Active Problems Problem Noted Date Diagnosed Date Nutritional counseling 07/22/2025 Muscle soreness 06/23/2025 Hypoglycemia 06/23/2025 Assessment & Plan (06/23/2025 9:13 AM EDT): A1c 4.4 in Dec on wegovy 2.4mg. A1c 4.5 in March on wegovy 1.7mg, was decreased to 1mg. Asymptomatic. Repeat lab today. Consider tirzepatide if this continues to be a side effect, has regained 9lb since December, appetite is not as well controlled. Counseling, unspecified 06/23/2025 Assessment & Plan (06/23/2025 10:44 AM EDT): We discussed that the topic of high [...] disease which is a rare medical condition. Urinary tract infection without hematuria 2022 Hyperlipidemia 07/04/2022 Overview (07/04/2022): mildly elevated LDL, no meds required Weight loss counseling, encounter for 01/23/2022 Overview (12/25/2024): Start weight (01/23/2022): 182 1st goal (10% loss):164 (reached 01/2023) 2nd goal (reached 02/2023) (Q3 MONTH TILL GOAL) 3: 150 3rd goal (healthy fat range): 135 Current Rx from [facility]: State insurance (11/2022) Wegovy (02/2022) OTC stool softner (06/2022) psyllium husk Rx options: phentermine (has used in the past) Saxenda--used in past with no adverse effect, denied due to lack of 4% weigh loss in initial months. Denies multiple endocrine neoplasia, past pancreatitis, personal or family history of thyroid cancer. Denies cardiac PMH or symptoms. (08/2022) Qsymia, tolerated well control: IUD Comorbid conditions: hypertension, hyperlipidemia Exercise: used to jazzercise, walk. At home work out 30 min 3x week. Assessment & Plan (03/24/2025 1:34 PM EDT): This is a follow up visit she is up around a pound since last being seen. She is currently taking Wegovy 1.7 mg and tolerating well. This has been reduced from 2.4 related to an A1c. She has been at this lower dose for approximately 2 months. Repeating A1c and remaining GLP-1 labs today. If he continues to remain low we will do an additional 3 months and retest at that point. If after that point it continues to remain low we will do further reduction in medication. Final goal for this patient is around 135 pounds which is within a healthy fat percentage in range for someone her age and sex. Patient particularly is working on increasing protein goals of this month. Addendum: 03/24/2025: A1C remains low. Reduce Wegovy dose from 1.7 to 1mg. Assessment & Plan (01/26/2025 8:19 AM EDT): This is a follow-up visit patient is up 2.6 pounds since last being seen. Currently is taking Wegovy 1.7 mg. This was reduced from 2.4 mg at last office visit related to low A1c. We will recheck A1c in 2 months. We will each other in 2 months and repeat A1c again at that time. Staff message was sent to start prior approval as she had received a letter stating she needed this done before . Final goal set to 135lb (healthy fat range). Is currently not journaling her foods but does feel she is not reaching her protein goals. Goal to prioritize this and reach her goals. Assessment & Plan (12/29/2024 8:22 AM EST): This is a follow-up visit patient is down little over 3 pounds since last being seen. Based on body composition analysis would set final goal at 135 pounds. Still working on accomplishing this goal. We have noticed a very mildly low A1c at last drawl and discussed mildly increasing healthy carbs. A1c today and discussed that if further lowered or not within normal range we may consider a dose adjustment of medication. States understanding. Assessment & Plan (09/29/2024 8:27 AM EST): Is a follow-up visit patient is down about 2.4 pounds since last being seen approximately 3 months ago. Her final goal was set to around 135 which is within the healthy fat range for someone her age and sex. Continue Wegovy 2.4 mg, refill sent in. Advised that this medication is likely not related to her UTIs. A1c was reviewed and it is very mildly on the low side, wolf signs of hypoglycemia. This does appear to be consistent with previous A1c's. Advised that it is okay to have healthy carbohydrates such as whole grains and fruits. A1c will be due at next visit. Assessment & Plan (06/30/2024 8:25 AM EDT): This is a follow up visit. She is up around a half of pound. She is taking Wegovy 2.4mg. 3 month supply of Wegovy. Labs ordered today. Final goal of 135lbs. Assessment & Plan (04/29/2024 9:05 AM EDT): This is a 2 month follow up and she is around the same weight, slightly up by around a half of pound. Continue Wegovy 2.4mg. Will get GLP-1 fasting labs at next office visit. Set goal of logging 2-3 days per week, all meals, and reaching water goals. Assessment & Plan (02/28/2024 8:25 AM EDT): --This is a follow up visit. Weight is stable. Gain of 0.4 lb since last visit 2 months ago. --Struggling with night time snacking. Goal: avoiding ice cream in the evenings --Completed A1C today, previously mildly low --Continue Wegovy 2.4 mg weekly --Final weight goal 135 lbs, within healthy fat range Assessment & Plan (12/31/2023 8:45 AM EST): --This is a follow up visit and she is up around 2.4 lb --Goal to reach water goal --Continue Wegovy 2.4mg --Reviewed labs. A1C is mildly low. Discussed having healthy carbs such as fruits. CMP and Lipid are looking good with improvement in LDL cholesterol. --Q2 month follow up Assessment & Plan (11/01/2023 8:42 AM EST): --This is a follow up visit and she is around the same weight. --Continue Wegovy 2.4mg --Gaol to journal everyday but at min 5 days per week. Goal to increase vegetables. Goal for vegetable at every meal including breakfast. --Getting labs today A1C, CMP and lipid for GLp-1 protocol Assessment & Plan (08/30/2023 8:25 AM EDT): This is a follow-up visit and patient is down around 2 and half pounds since last being seen approximately 2 months ago. She is close to reaching her final goal of around 135. She is currently weighing around 144 just north percentage age and her sex. Medicomp analysis was reviewed and mutually agreed to 135 is still a healthy goal. Continue to focus on reaching protein goal and vegetable. She Continue to be in a good exercise rhythm. Continue Wegovy. Refill sent in. Final goal of 135-138 A1C at next visit Assessment & Plan (06/26/2023 8:25 AM EDT): --This is a 2 month follow up and she is up around 3.5 lbs --Goal to reach protein goal and work on getting at min 3 vegetables. She set a goal to explore other ways to get vegetables --goal of 1/2 to 1 lb weight loss per week so 2-4 bls this month --At the upper end of healthy fat range for someone her age and sex -- Will be going on vacation before next visit. Be mindful of choices. Assessment & Plan (04/24/2023 9:25 AM EDT): This is a follow-up visit and patient is down around 5 pounds since last being seen approximately a month ago. Reviewed body comp analysis which shows her current fat percentage 34.9. Healthy range for someone her age and her sex is between 23 and 34%. Recent final goal to 135. Continue Wegovy refill sent in with 1 refill. Space visits out to every 2 months. Once reaching final goal we discussed starting maintenance phase. Call office if she feels like she needs to come in sooner. Continue to focus on staying at or below calorie and carbs and at or above protein and be mindful to reach at least 3 nonstarchy vegetables a day Assessment & Plan (03/27/2023 3:10 PM EDT): --This is a follow-up visit and patient is down a little over 1 pound since last being seen approximately a month ago. -- We had discontinued Qsymia at last office visit and she has noticed a mild increase in appetite. We will continue Wegovy at full dose till we reached our final goal of the range of 140-145. --Body comp analysis was reviewed and readjusted calorie and macro goals based on this information. Advised that we are looking to stay at or below calorie and carb goal and at or above protein goal. Encouraged her to restart food journaling. Be particular to look at where protein and fiber is staying for the day. Assessment & Plan (02/26/2023 2:35 PM EDT): Patient's (Body mass index is 24.93 kg/m .) indicates that they are overweight with health conditions that include hypertension and dyslipidemias . Weight is improving with treatment. BMI is is above average; BMI management plan is completed. We discussed low calorie, low carb based diet program, portion control, increasing exercise, pharmacologic options including Wegovy and an noman-based approach such as HouseFix Pal or Lose It. -- This is a follow-up visit and patient is down around 7 pounds since last being seen approximately a month ago -- Her BMI has dropped below 25. Discontinue Qsymia. Continue Wegovy. Discussed the likelihood of decreasing Wegovy next month if she is within her healthy fat range. -- Body comp analysis was reviewed and her current fat percentage is around 35%. Healthiest range for someone her age and sex is between 23 and 34%. Set a new final goal to be within a healthy fat range between 140 and 145. Assessment & Plan (01/23/2023 9:37 AM EDT): Patient's (Body mass index is 26.23 kg/m .) indicates that they are overweight with health conditions that include hypertension and dyslipidemias . Weight is improving with treatment. BMI is is above average; BMI management plan is completed. We discussed low calorie, low carb based diet program, portion control, increasing exercise, pharmacologic options including qsymia and wegovy and an noman-based approach such as MyAnametrix Pal or Lose It. --This is a follow up visit and she is down around 7 lbs in last month --Continue wegovy and qsymia --She has a good rhythm of exercise, keep up this good effort. --Discussed that we will discontinue qsymia once we reach a BMI of 25 or below. --Reached her 10% weight loss goal and getting close to 2nd goal of 150. Currently weighs 157 Assessment & Plan (12/21/2022 12:16 PM EST): Patient's (Body mass index is 27.42 kg/m .) indicates that they are overweight with health conditions that include hypertension and dyslipidemias . Weight is improving with treatment. BMI is is above average; BMI management plan is completed. We discussed low calorie, low carb based diet program, portion control, increasing exercise, pharmacologic options including qsymia and Wegovy and an noman-based approach such as MyFiteyetok Pal or Lose It. --This is a follow-up visit and patient is down around 7 pounds since last being seen approximately a month ago. -- We did set a goal to start food journaling which she did approximately half the days. Continue to focus on this being her #1 priority. Patient self determine goal of reaching 5 out of 7 days of journaling this coming month. -- She has started a weight training class two times a week. Keep up this good effort. -- Blood pressure was elevated today. Patient advised to hold Qsymia if blood pressure ever above 150/90. Encouraged her to start daily readings and if her BP remains elevated to follow-up with her primary care within a month or 2. -- She is very close to reaching her 10% weight loss goal. Current weight is 164.8 and 10% weight loss goal is 164. Goal to be there by next office visit. Assessment & Plan (11/13/2022 10:04 AM EST): Patient's (Body mass index is 28.59 kg/m .) indicates that they are overweight with health conditions that include hypertension and dyslipidemias . Weight is unchanged. BMI is is above average; BMI management plan is completed. We discussed low calorie, low carb based diet program, portion control, increasing exercise, pharmacologic options including wegovy and qsymia and an noman-based approach such as HouseFix Pal or Lose It. -- This is a follow-up visit and patient is around the same weight as she was approximately a month ago. -- Continue Qsymia and start Wegovy. Sample provided at office. Lot number in [id number], expiration 07/14/2023. Prescription sent in and prior approval authorization sent to staff. Injection instruction provided and side effect profile reviewed. Discussed the likelihood of constipation with this class of medication and she did need to be on a stool softener while on Saxenda advised to restart this to prevent constipation. -- Baritastic food journal was set up in office today based on body comp analysis and basal metabolic rate. Encouraged her to restart food journaling and asked her to bring in her food journal to next office visit for brief review. Encouraged her that were not necessarily looking for perfection on her food choices but just analyzing where her macros and calories are staying from. Assessment & Plan (10/09/2022 8:54 AM EST): Patient's (Body mass index is 28.46 kg/m .) indicates that they are overweight with health conditions that include hypertension and dyslipidemias . Weight is improving with treatment. BMI is is above average; BMI management plan is completed. We discussed low calorie, low carb based diet program, portion control, increasing exercise, pharmacologic options including qsymia and an noman-based approach such as MyFiteyetok Pal or Lose It. --This is a follow up visit and she is down 5lbs since last being seen. --Continue Qsysima. Consider adding Wegovy when supply opens up. --Continue to focus on jose david protein and be mindful of increasing plant based products. --Currently has restarted running and has a goal in incorporate resistance training. Assessment & Plan (08/17/2022 8:34 AM EDT): Patient's (Body mass index is 29.35 kg/m .) indicates that they are overweight with health conditions that include hypertension and dyslipidemias . Weight is improving with treatment. BMI is is above average; BMI management plan is completed. We discussed low calorie, low carb based diet program, portion control, increasing exercise, pharmacologic options including qsymia and an noman-based approach such as MyFiteyetok Pal or Lose It. -- This is a follow-up visit and patient is up around 3 pounds since last being seen approximately 2 weeks ago. She was denied Saxenda. Switch to Qsymia. Advised that we can consider Wegovy around the beginning of the year once availability increases. Assessment & Plan (07/31/2022 4:03 PM EDT): Patient's (Body mass index is 28.87 kg/m .) indicates that they are overweight with health conditions that include hypertension and dyslipidemias . Weight is unchanged. BMI is is above average; BMI management plan is completed. We discussed low calorie, low carb based diet program, portion control, increasing exercise, pharmacologic options including Saxenda and an noman-based approach such as MyFiteyetok Pal or Lose It. --Taking a keto class this month. Be mindful when restarting carbs they are from preferably plant based --Restart jounraling --Have been working on adding non-starchy vegetable. Continue this effort. Assessment & Plan (07/04/2022 8:06 AM EDT): Patient's (Body mass index is 28.66 kg/m .) indicates that they are overweight with health conditions that include hypertension and dyslipidemias . Weight is improving with treatment. BMI is is above average; BMI management plan is completed. We discussed low calorie, low carb based diet program, portion control, increasing exercise, pharmacologic options including Saxenda and an noman-based approach such as MyAnametrix Pal or Lose It. --This is a follow-up visit and patient is around the same weight as she was last month. -- Currently taking 3 mg Saxenda and tolerating well -- Currently is food journaling around half the days. Concerned that there is a little bit of increased hunger this past month. Advised to start looking at macros in detail being sure that she is reaching that protein goal on the days that she is feeling hunger. -- We have also been working on increasing nonstarchy vegetable intake which she has started doing. Continue this effort Assessment & Plan (05/31/2022 11:41 AM EDT): Patient's (Body mass index is 28.69 kg/m .) indicates that they are overweight with health conditions that include hypertension and dyslipidemias . Weight is improving with treatment. BMI is is above average; BMI management plan is completed. We discussed low calorie, low carb based diet program, portion control and an noman-based approach such as MyAnametrix Pal or Lose It. --This is a follow up visit and patient is down 3.4 since last office visit around a month ago. -- Patient has been food journaling but not as consistently as previously stating that she is journaled 5 to 10 days this past month. Goal this month is to chart at least 25 out of 30 days in full including all meals and snacks and drinks. -- Continue Saxenda prescription sent in with refills on pen needles. Assessment & Plan (04/27/2022 8:19 AM EDT): Patient's (Body mass index is 29.22 kg/m .) indicates that they are overweight with health conditions that include hypertension and dyslipidemias . Weight is improving with treatment. BMI is is above average; BMI management plan is completed. We discussed low calorie, low carb based diet program, portion control and increasing exercise. --This is a follow up visit and she is down around 4 lbs since -- She currently had switched over from Wegovy to Saxenda due to Wegovy shortage. She has titrated up to 1.8. She is not having any adverse effects and currently is controlling constipation with an [id number] stool softener. Okay to continue to titrate up advised to go up to 2.4 and remained there for a minimum 2 weeks and if tolerating well okay to increase to max dose of 3.0 and remain there indefinitely. -- Continues to journal well all tracking she says at least 20 out of 30 days. Due to this being a virtual visit we were unable to review but asked her to continue this process and will take a look at it at next office visit. --Patient personal goal is: increase vegetables. Assessment & Plan (03/13/2022 8:58 AM EDT): Patient's (Body mass index is 28.89 kg/m .) indicates that they are overweight with health conditions that include hypertension and dyslipidemias . Weight is improving with treatment. BMI is is above average; BMI management plan is completed. We discussed low calorie, low carb based diet program, portion control and increasing exercise. -- This is a follow-up visit and patient is down 1 pound since last office visit. -- She had started the Wegovy 0.25 and did take for a month. Afterwards she could not find the next dose of medication due to supply issues. It was changed to Saxenda but she has been unable to pick that up as the pharmacy did not have it in stock. We did send this medication to community pharmacy today and she does plan to touch base with them to make arrangements to either have picked up or mailed to her. Advised on this medication to start at a 0.6 mg and continue this for at minimum 1 week. Advised that she has any side effects to continue that 0.6 for an extended period of time. -- Has continued to do her food journal and feels that she has done about 20 out of 30 days and did bring in for a brief review. We did notice that she did start the day tracking and many days did fall off. We will continue to make this an effort with a goal of daily tracking this coming month. On the days that were tracked and full she was staying within her calorie goal. We will also work on increasing nonstarchy vegetables. Goal of at minimum 3 nonstarchy vegetables a day. -- Has been working out regularly 5 to 6 days a week. But this great effort --Continue to work or water goal Assessment & Plan (02/08/2022 8:23 AM EDT): Patient's (Body mass index is 29.05 kg/m .) indicates that they are overweight with health conditions that include hypertension . Weight is improving with lifestyle modifications. BMI is is above average; BMI management plan is completed. We discussed low calorie, low carb based diet program, portion control and increasing exercise. --This is the follow-up visit and patient is down 2 weeks since last office visit. --She did bring her Wegovy in for injection instruction provided in office today. Started 0.25 mg today. Rx for 0.5 sent to community. --She did start food journaling and although she does not like it has been the majority of days only missing the weekends. Keep with this great great effort. Made a goal of journaling every day this coming month and asked her to bring in food journal to next office visit Assessment & Plan (01/23/2022 1:53 PM EDT): Patient's (Body mass index is 29.38 kg/m .) indicates that they are overweight with health conditions that include hypertension . Weight is newly identified. BMI is is above average; BMI management plan is completed. We discussed low calorie, low carb based diet program, portion control and increasing exercise. --- This is the initial restart visit. She did bring in some recent labs additional labs were ordered to be completed fasting. She plans to come into the diagnostic center in [place]. --Wegovy prescription was sent into community [facility] in [facility]. She is a state employee. Patient advised that if she is able to tow picker this prescription or get it filled prior to next office visit do not start but instead bring to next office visit for injection instruction --My fitness pal was set up in office today based on body composition analysis --My fitness pal was set up in office today based on body composition analysis. Patient advised that her #1 goal over the next 2 weeks is to start food journaling. Advised that were not looking for perfection on calories or macros but instead starting to analyze where calories and foods are coming from. Asked her to bring in her food journal to next office visit for brief review Overweight 11/11/2018 Overview (07/22/2025): Baseline BMI 30.8 in 2018 Assessment & Plan (06/24/2025 8:16 AM EDT): Patient's (Body mass index is 25.93 kg/m .) indicates that they are overweight with health conditions that include hypertension and dyslipidemias . Weight is worsening. BMI is above average; BMI management plan is completed. We discussed low calorie, low carb based diet program, portion control, increasing exercise, pharmacologic options including wegovy, and an noman-based approach such as HouseFix Pal or Lose It. I have instructed [...] instructions for how to use the pen. Hypertension 11/11/2018 Edema 11/11/2018 Encounters Date Type Department Care Team Description 07/22/2025 8:00 AM EDT Office Visit [facility] [address] [place] [address] Arianna Barry APRN Overweight (Primary Dx); Nutritional counseling; Primary hypertension 07/22/2025 Travel 06/25/2025 Prior Authorization [facility] [address] [place] [address] Arianna Barry, POLITICAL RESEARCH SCIENTIST 06/24/2025 Results Follow-Up [facility] [address] [place] [address] Arianna Barry, POLITICAL RESEARCH SCIENTIST 06/23/2025 8:30 AM EDT Office Visit [facility] [address] [place] [address] Arianna Barry, POLITICAL RESEARCH SCIENTIST Overweight (Primary Dx); Hypoglycemia; Muscle soreness; Counseling, unspecified 06/23/2025 Travel from Last 3 Months Family History Medical History Relation Name Comments Hearing loss Father Thierno Desai Hypertension Father Thierno Desai Breast cancer Maternal Aunt 1 Maria Guadalupe Depuy 60'S Cancer Maternal Aunt 1 Maria Guadalupe Depuy Breast cancer Maternal Aunt 2 Kellee Largen 60'S Cancer Maternal Aunt 2 Kellee Largen BRCA 1/2 Mother Arianne Lloyd Hypertension Mother Arianne Lloyd Cancer Paternal Grandmother Janis Lloyd Ovarian cancer Paternal Grandmother Janis Lloyd ? Cancer Paternal Uncle 1 Phil Lloyd Cancer Paternal Uncle 2 Gilbert Wlech Arthritis Sister Lyn Khang BRCA 1/2 Sister Lyn Khang Relation Name Status Comments Father Thierno Desai Maternal Aunt 1 Maria Guadaulpe Depuy Maternal Aunt 2 Kellee Largen Mother Arianne Lloyd Paternal Grandmother Janis Lloyd Paternal Uncle 1 Phil Lloyd Paternal Uncle 2 Gilbert Welch Sister Lyn Khang Social History Tobacco Use Types Packs/Day Years [...] on file Sexual Orientation Not on file Last Filed Vital Signs Vital Sign Reading Time Taken Comments Blood Pressure 124/78 07/22/2025 8:16 AM EDT Pulse 65 07/22/2025 8:16 AM EDT Temperature 35.7 C (96.2 F) 03/13/2022 8:28 AM EDT Respiratory Rate 18 03/23/2025 8:05 AM EDT Oxygen Saturation 98% 03/23/2025 8:05 AM EDT Inhaled Oxygen Concentration - - Weight 72.8 kg (160 lb 6.4 oz) 07/22/2025 8:16 A M EDT Height 165.1 cm (5' 5 ) 07/22/2025 8:16 AM EDT Body Mass Index 26.69 07/22/2025 8:16 AM EDT Plan of Treatment Upcoming Encounters Date Type Department Care Team (Late st Contact Info) Description 08/31/2025 8:00 AM EDT Office Visit [facility] [address] [place] [address] Ida Thomas, POLITICAL RESEARCH SCIENTIST [address] [place] [address] Health Maintenance Due Date Last Done Comments TDAP/TD VACCINES (1 - Tdap) 1995 PAP SMEAR 1997 Annual Gynecologic Pelvic and Breast Exam 06/14/2017 06/13/2016 ANNUAL PHYSICAL 11/11/2018 HEPATITIS C SCREENING 11/11/2018 COLON CANCER SCREENING 5 YEAR SIGMOIDOSCOPY [address] COLONOGRAPHY 2021 FECAL OCCULT BLOOD TEST 2021 FIT Testing (1 year) 2021 INFLUENZA VACCINE 06/05/2025 09/02/2020 LIPID PANEL 03/23/2026 03/23/2025, 06/06, 11/01/2023, Additional history exists MAMMOGRAM 02/17/2027 02/17/2025, 02/03, 09/03/2024, Additional history exists COLOGUARD 04/11/2028 04/11/2025, 02/03/2022 COLORECTAL CANCER SCREENING 04/11/2028 Pneumococcal Vaccine 0-49 Aged Out No longer eligible based on patient's age to complete this topic Procedures Procedure Name Priority Date/Time Associated Diagnosis Comments BASIC METABOLIC PANEL Routine 06/23/2025 9:05 AM EDT Overweight Hypoglycemia Muscle soreness HEMOGLOBIN A1C Routine 06/23/2025 9:05 AM EDT Overweight Hypoglycemia LIPID PANEL Routine 03/23/2025 8:43 AM EDT Encounter for weight management Encounter for long-term current use of medication MAMMO SCREENING DIGITAL TOMOSYNTHESIS BILATERAL W CAD Routine 02/13/2025 1:01 PM EDT Visit for screening mammogram from Last 3 Months or Most Recently Relevant to Health Maintenance Results * (ABNORMAL) Hemoglobin A1c (06/23/2025 9:05 AM EDT) Pathologist [facility] Hemoglobin A1C 4.50(L) 4.80 - 5.60 % [facility] Comment: Hemoglobin A1C Ranges: Increased Risk for Diabetes 5.7% to 6.4% Diabetes >= 6.5% Diabetic Goal < 7.0% Blood 06/23/2025 9:05 AM EDT 06/23/2025 Narrative [facility] - 06/23/2025 8:09 PM EDT Performed at: [address] [place] [id number] Engineering Designer: Jose Mejia MD, Phone: [phone] Patient Fasting: Y Arianna Barry APRN LAB BLOOD ORDERABLES Final Result [facility] [address] [place] [address], [place] [phone] [facility] [address] [place] [address], [place] [phone] * Basic Metabolic Panel (06/23/2025 9:05 AM EDT) [facility] Glucose 70 65 - 99 mg/dL [facility] [...] - 06/23/2025 8:09 PM EDT Performed at: [address] [place] [id number] Engineering Designer: Jose Mejia MD, Phone: [phone] Patient Fasting: Y Arianna Barry APRN LAB BLOOD ORDERABLES Final Result [facility] [address] [place] [address], [place] [phone] [facility] [address] [place] [address], [place] [phone] * Lipid Panel (03/23/2025 8:43 AM EDT) Total Cholesterol 146 0 - 200 mg/dL [facility] Comment: Cholesterol Reference Ranges (U.S. Department of Health and Human Services ATP III Classifications) Desirable <200 mg/dL Borderline High 200-239 mg/dL High Risk >240 mg/dL Triglyceride Reference Ranges (U.S. Department of Health and Human Services ATP III Classifications) Normal <150 mg/dL Borderline High 150-199 mg/dL High 200-499 mg/dL Very High >500 mg/dL HDL Reference Ranges (U.S. Department of Health and Human Services ATP III Classifications) Low <40 mg/dl (major risk factor for CHD) High >60 mg/dl ('negative' risk factor for CHD) LDL Reference Ranges (U.S. Department of Health and Human Services ATP III Classifications) Optimal <100 mg/dL Near Optimal 100-129 mg/dL Borderline High 130-159 mg/dL High 160-189 mg/dL Very High >189 mg/dL LDL is calculated using the NIH LDL-C calculation. Triglycerides 90 0 - 150 mg/dL [facility] HDL Cholesterol 54 40 - 60 mg/dL [facility] VLDL Cholesterol Sunny 17 5 - 40 mg/dL [facility] LDL Chol Calc (NIH) 75 0 - 100 mg/dL [facility] Blood 03/23/2025 8:43 AM EDT 03/23/2025 Narrative [facility] - 03/24/2025 6:09 AM EDT Performed at: [address] [id number] Engineering Designer: Jose Mejia MD, Phone: [phone] Patient Fasting: N Ida Thomas APRN LAB BLOOD ORDERABLES Final Result [facility]) [address] [place] [address], [facility] [address] [place] [address], [place] [phone] * Mammo Screening Digital Tomosynthesis Bilateral With CAD (02/13/2025 1:01 PM EDT) Anatomical Region Laterality Modality Breast N/A Mammography 02/17/2025 2:42 PM EDT Impressions 02/17/2025 2:50 PM EDT No findings suspicious for malignancy. ACR BI-RADS CATEGORY: 1, NEGATIVE RECOMMENDATION: Yearly mammogram, yearly clinical breast exam, and encourage self breast awareness. CAD was used. The standard false negative rate of mammography is between 10% and 25%. Complex patterns or increased breast density will markedly elevate the false negative rate of mammography. A letter, in lay terminology, with the results of this exam will be mailed to the patient. If there is a palpable area of concern, biopsy should be considered regardless of imaging findings. 02/17/2025 2:50 PM by Tonya Uribe MD on Narrative 02/17/2025 2:50 PM EDT ROUTINE DIGITAL SCREENING MAMMOGRAM WITH TOMOSYNTHESIS HISTORY: Routine screening. IMAGE COMPARISON: Extending to 2018. TECHNIQUE: Low dose full field digital breast tomosynthesis imaging was performed with 2D and 3D acquisitions consisting of bilateral CC and MLO views. FINDINGS: There are scattered fibroglandular densities. The fibroglandular pattern appears stable. There is no mass, worrisome microcalcifications, or architectural distortion to suggest development of malignancy. Yuly Chris MD IMG MAMMOGRAPHY ORDERABLES Fi nal Result from Last 3 Months or Most Recently Relevant to Health Maintenance Insurance [employer] Care Teams Mailing Section Clerk Relationship Specialty Start Date End Date Jay Jay Jarrell MD [address] [place] [address] PCP - General Family Medicine 09/06/16
--- OUTSIDE RECORDS SUMMARY | 2025-08-05 13:03 | XMS_ITS | Encounter Summary ---
[facility] [address] [place] [address] Care Team Providers Care Principal Associate Name Role Phone Jay Jay Jarrell MD Primary Care Provider [phone] Encounter Details Date Type Department Care Team (Latest Contact Info) Description 06/23/2025 Travel Social History Tobacco Use Types Packs/Day [...] Description 08/31/2025 8:00 AM EDT Office Visit [facility] [address] [place] [address] Ida Thomas, BRAZING FURNACE FEEDER [address] [place] [address] documented as of this encounter Visit Diagnoses Not on filedocumented in this encounter Care Teams Principal Associate Relationship Specialty Start Date End Date Jay Jay Jarrell MD [address] [place] [address] PCP - General Family Medicine 09/06/16 documented as of this encounter
[2025-08-05 13:47] LABS: Hematocrit 40.2 % (37.0-47.0); Hemoglobin 13.8 g/dL (12.2-16.2); Immature Granulocytes % 0.3 %; Mean Corpuscular HGB Conc 34.3 g/dL (31.8-35.4); Mean Corpuscular Hemoglobin 32.4 pg (27.0-31.2); Mean Corpuscular Volume 94.4 fl (81-99); Nucleated Red Blood Cells % 0 %; Platelet Count 254 K/mm3 (142-424); Red Blood Count 4.26 M/mm3 (4.20-5.40); Red Cell Distribution Width-SD 40.8 fL; White Blood Count 5.8 K/mm3 (4.8-10.8)
[2025-08-05 14:06] LABS: Alanine Aminotransferase 21 U/L (12-78); Albumin Level 4.3 g/dl (3.5-5.0); Albumin/Globulin Ratio 1.6 (1.1-1.8); Alkaline Phosphatase 66 U/L (38-126); Anion Gap 15.0 mEq/L (5-15); Aspartate Amino Transferase 31 U/L (14-36); Bilirubin,Total 1.1 mg/dl (0.2-1.3); Blood Urea Nitrogen 25 mg/dl (7-17); Calcium 9.0 mg/dl (8.4-10.2); Carbon Dioxide 26 mmol/L (22.0-30.0); Chloride 104 mmol/L (98-107); Creatinine,Serum 0.90 mg/dl (0.52-1.04); Estimated Glomerular Filt Rate 67 ml/min (>60); GFR (African American) 81 ML/MIN (>60); Globulin 2.7 g/dL (1.3-3.2); Glucose 72 mg/dl (74-100); Potassium 5.0 mmoL/L (3.5-5.1); Sodium 140 mmol/L (136-145); Total Protein,Serum 7.0 g/dl (6.3-8.2)
== END 2025-08-05 23:59 | disposition home or self-care (01) ==
LOC: LAB 12:58
PROVIDERS: PCP Family Medicine; Visit Provider Dermatology
DX: L40.0 Psoriasis vulgaris (principal)
CPT/HCPCS: 36415; 80053; 80074; 85025; 86480